=== PATIENT | male | born 1950 | race Caucasian/White ===

== ENCOUNTER 2018-12-15 15:45 | Emergency (ER) | payer MEDICARE, OTHER ==
[2018-12-15] MEDS ORDERED: DIPH,PERTUS(ACELL)TETVAC-LF 0.5 ML VIAL IM ONE (16:10)
[2018-12-15] MEDS ORDERED: DOXYCYCLINE 100 MG CAP PO STA (16:11)
[2018-12-15] MEDS: LIDOCAINE 1% INJ 10MG/ML (20 ML MDV) SQ ONE ×2 (16:24→16:25)
--- NOTE | 2018-12-15 16:31 | XR ---
EXAMINATION TYPE: XR hand complete LT DATE OF EXAM: 12/15/2018 CLINICAL HISTORY: pain TECHNIQUE: Frontal, lateral and oblique images of the left hand are obtained. COMPARISON: None. FINDINGS: There is no acute fracture/dislocation evident. The joint spaces appear within normal limi ts. The overlying soft tissue appears unremarkable. IMPRESSION: There is no acute fracture or dislocation. ICD 10 NO FRACTURE, INITIAL EVALUATION
--- NOTE | 2018-12-15 17:47 | ED ---
General Adult HPI - General Chief complaint: Animal Bite Stated complaint: [facility] - dog bite Time Seen by Provider: 12/15/18 16:03 Source: patient, RN notes reviewed Mode of arrival: ambulatory Limitations: no limitations - History of Present Illness Initial comments: Ludy is a 68-year-old male who presents to the emergency department for a chief complaint of dog bite on the left hand. This happened just prior to arrival. 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 States he did not inquire about rabies immunizations but will be able to contact the quality improvement manager. States he is not sure when his last tetanus shot was. Denies any difficulty moving his fingers. Denies any blood thinners. Denies any other injuries or complaints.Patient has no other complaints at this time including shortness of breath, chest pain, abdominal pain, nausea or vomiting, headache, or visual changes. - Related Data Home Medications Medication Instructions Recorded Confirmed Cholecalciferol [Vitamin D3] 2,000 unit PO DAILY 03/22/15 12/11/15 Fexofenadine HCl [Myra Allergy] 180 mg PO DAILY 03/22/15 12/11/15 Lisinopril-Hctz 10-12.5 mg 1 each PO DAILY 03/22/15 12/11/15 [Zestoretic 10-12.5] [place]-3 Fatty Acids/Fish Oil [Fish 1 each PO DAILY 03/22/15 12/11/15 Oil 1,000 mg Softgel] Aspirin EC [Ecotrin] 81 mg PO DAILY 12/10/15 12/11/15 Previous Rx's Medication Instructions Recorded Doxycycline [Vibramycin] 100 mg PO BID 14 Days capsule 12/15/18 Allergies Allergy/AdvReac Type Severity Reaction Status Date / Time amoxicillin trihydrate Allergy Rash/Hives Verified 12/15/18 16:02 [From Augmentin] potassium clavulanate Allergy Rash/Hives Verified 12/15/18 16:02 [From Augmentin] Sulfa (Sulfonamide Allergy Rash/Hives Verified 12/15/18 16:02 Antibiotics) Review of Systems ROS Statement: Those systems with pertinent positive or pertinent negative responses have been documented in the HPI. ROS Other: All systems not noted in ROS Statement are negative. Past Medical History Past Medical History: Hearing Disorder / Deafness, Hypertension Additional Past Medical History / Comment(s): seasonal allergies, SLIGHT [place] RT EAR History of Any Multi-Drug Resistant Organisms: None Reported Past Surgical History: Hernia Repair Additional Past Surgical History / Comment(s): LAPAROSCOPIC UMBILICAL HERNIA REPAIR 03/28/15, [facility]. INJ HERNIA REPAIR Past Anesthesia/Blood Transfusion Reactions: No Reported Reaction Past Psychological History: No Psychological Hx Reported Smoking Status: Former smoker Past Alcohol Use History: None Reported Past Drug Use History: None Reported - Past Family History Father Family Medical History: Asthma Additional Family Medical History / Comment(s): EMPHYSEMA Mother Family Medical History: Cancer, Hypertension Additional Family Medical History / Comment(s): BREAST CA General Exam Limitations: no limitations General appearance: alert, in no apparent distress Head exam: Present: atraumatic, normocephalic, normal inspection Eye exam: Present: normal appearance, PERRL, EOMI. Absent: scleral icterus, conjunctival injection ENT exam: Present: normal exam, mucous membranes moist Neck exam: Present: normal inspection, full ROM. Absent: tenderness, meningismus, lymphadenopathy Respiratory exam: Present: normal lung sounds bilaterally. Absent: respiratory distress, wheezes, rales, rhonchi, stridor Cardiovascular Exam: Present: regular rate, normal rhythm, normal heart sounds. Absent: systolic murmur, diastolic murmur, rubs, gallop, clicks Extremities exam: Present: full ROM ([place] motion of the left hand and all digits of the left hand including the fourth and fifth digits. Flexion and extension intact at the DIP, PIP, and MCP joints of the fourth and fifth digits.), normal capillary refill (Capillary refill less than 2 seconds, radial pulse 2+ in the left upper extremity. Capillary refill is 2 seconds in the left fourth and fifth digits.), other (Patient has a 3.5 cm laceration over the dorsal aspect of the left hand fourth and fifth metacarpals. No evidence for foreign body after inspection). Absent: tenderness, pedal edema, joint swelling, calf tenderness Course Vital Signs 12/15/18 16:00 Temperature 97.8 F Pulse Rate 85 Respiratory 16 Rate Blood Pressure 180/95 O2 Sat by Pulse 96 Oximetry Procedures - Laceration Laceration #1 Consent Obtained: verbal consent Indication: laceration Site: hand Size (cm): 3 Description: linear Depth: simple, single layer Anesthetic Used: lidocaine 1% Anesthesia Technique: local infiltration Amount (mls): 5 Pre-repair: wound explored, irrigated extensively (With 2 L of normal saline followed by saline pressure irrigation and then iodine) Type of Sutures: other ([place]) Size of Sutures: 5-0 Number of Sutures: 4 Technique: simple, interrupted Patient Tolerated Procedure: well, no complications Additional Comments: Wound was gaping so it was Loosely sutured to allow for drainage and prevent infection Medical Decision Making - Medical Decision Making Ludy is a 68-year-old male presenting for dog bite to the left hand. Patient states that he was bitten by a dog while at working at [employer]. Patient states he would rather follow up on whether the dog is immunized for rabies rather than receive rabies immunizations. These were offered to him. Patient was updated on tetanus. Ring was removed after x-ray was taken. On exam patient has a 3.5 cm laceration noted over the dorsal aspect of the left hand along the fourth and fifth metacarpals. Full range of motion of all digits including the fourth and fifth digit. No evidence for tendon injury. X-ray showed no acute fracture or dislocation. There is a possible foreign body noted. However after copious irrigation and inspection no foreign body evident. Wound was gaping, it was loosely sutured using 4 simple interrupted sutures allowing for drainage. Patient was started on doxycycline as she is ALLERGIC to Augmentin. Discussed this case with Dr. Michelle, and agreement with care plan. Patient will follow up with primary care. He will return here if he has any worsening symptoms. These were discussed in detail and included fever, drainage, redness, streaking redness, pain with movement of the finger which could signify infection to tendon. Disposition Clinical Impression: Dog bite, Laceration Disposition: HOME SELF-CARE Condition: Good Instructions (If sedation given, give patient instructions): Animal Bite (ED) Additional Instructions: Please take antibiotic as directed. Monitor for signs of infection is spreading or streaking redness, drainage, and with moving your fingers or fever. If these occur be sure to return to the emergency department. Otherwise follow-up with primary care in 1-2 days for a recheck. Return if you're having any other worsening symptoms. Prescriptions: Doxycycline [Vibramycin] 100 mg PO BID 14 Days capsule Is patient prescribed a controlled substance at d/c from ED?: No Referrals: [facility],Clinic [Primary Care Provider] - 1-2 days Time of Disposition: 17:38
[2018-12-15 18:01] VITALS: BP 150/89; PULSE 81; RESP 18; TEMP 98
== END 2018-12-15 18:01 | disposition home or self-care (01) ==
LOC: EC 15:45
DX: S61.452A Open bite of left hand, initial encounter (principal); I10 Essential (primary) hypertension; Z87.891 Personal history of nicotine dependence; Z79.82 Long term (current) use of aspirin; Z79.899 Other long term (current) drug therapy; Z88.0 Allergy status to penicillin; Z88.2 Allergy status to sulfonamides; Z23 Encounter for immunization; W54.0XXA Bitten by dog, initial encounter; Y92.69 Other specified industrial and construction area as the place of occurrence of the external cause; Y93.89 Activity, other specified; Y99.0 Civilian activity done for income or pay
CPT/HCPCS: 73130; 90715; 99283; 12002; 90471; J2001

== ENCOUNTER 2023-03-05 10:47 | Emergency (ER) | payer MEDICARE ==
[2023-03-05] MEDS ORDERED: ONDANSETRON 4 MG/2 ML VIAL IVP STA (12:05)
[2023-03-05] MEDS ORDERED: SODIUM CHLORIDE 0.9% 1,000 ML IV STA (12:05)
[2023-03-05 12:45] LABS: Basophils % (A) 0 %; Eosinophils # (A) 0.1 k/uL (0-0.7); Eosinophils % (A) 1 %; HCT 44.8 % (39.0-53.0); HGB 15.2 gm/dL (13.0-17.5); Lymphocytes # (A) 0.8 k/uL (1.0-4.8); Lymphocytes % (A) 10 %; MCH 31.3 pg (25.0-35.0); MCV 92.1 fL (80.0-100.0); Mean Platelet Volume 7.2; Monocytes # (A) 0.2 k/uL (0-1.0); Monocytes % (A) 3 %; Neutrophils # (A) 6.1 k/uL (1.3-7.7); Neutrophils % (A) 84 %; Platelet Count 211 k/uL (150-450); RBC 4.86 m/uL (4.30-5.90); RDW 12.1 % (11.5-15.5); WBC 7.3 k/uL (3.8-10.6)
[2023-03-05 12:56] LABS: ALT 29 U/L (4-49); AST 40 U/L (17-59); African American GFR (CKD) 86 (>60 ml/min/1.73 sqM); Albumin 4.4 g/dL (3.5-5.0); Alkaline Phosphatase 80 U/L (38-126); Anion Gap 11 mmol/L; Blood Urea Nitrogen 19 mg/dL (9-20); Calcium 9.5 mg/dL (8.4-10.2); Carbon Dioxide 19 mmol/L (22-30); Chloride 103 mmol/L (98-107); Glucose 125 mg/dL (74-99); Lipase 119 U/L (23-300); Magnesium 1.7 mg/dL (1.6-2.3); Non-African American GFR(CKD) 74 (>60 ml/min/1.73 sqM); Sodium 133 mmol/L (137-145); Total Bilirubin 1.2 mg/dL (0.2-1.3); Total Protein 7.1 g/dL (6.3-8.2)
[2023-03-05 13:14] LABS: Potassium 4.5 mmol/L (3.5-5.1)
[2023-03-05 14:19] LABS: Appearance,Urine Clear (Clear); Bilirubin,Urine Negative (Negative); Blood,Urine Large (Negative); Color,Urine Yellow; Glucose,Urine (UA) Negative (Negative); Ketones,Urine 1+ (Negative); Leukocyte Esterase,Urine Negative (Negative); Mucus,Urine Rare /hpf; Nitrite,Urine Negative (Negative); PH, Urine 5.5 (5.0-8.0); Protein,Urine Negative (Negative); RBC,Urine 47 /hpf (0-5); Specific Gravity,Urine 1.021 (1.001-1.035); Squamous Epithelial Cell,Urine <1 /hpf (0-4); Urobilinogen,Urine <2.0 mg/dL (<2.0); WBC,Urine <1 /hpf (0-5)
--- NOTE | 2023-03-05 14:23 | CT ---
EXAMINATION TYPE: CT abdomen pelvis wo con DATE OF EXAM: 03/05/2023 COMPARISON: None HISTORY: RT side abdomen pain CT DLP: 629.7 mGycm Automated exposure control for dose reduction was used. TECHNIQUE: Helical acquisition of images was performed from the lung bases through the pelvis. FINDINGS: LUNG BASES: There is subsegmental consolidation involving both lungs. Elevated left hemidiaphragm. Va edgardo 5 mm nodule in the right middle lobe. Favor scarring or atelectasis at the lung bases. Coronary a rtery calcification noted. LIVER/GB: Cholelithiasis with no CT evidence of cholecystitis. PANCREAS: No significant abnormality is seen. SPLEEN: No significant abnormality is seen. ADRENALS: No significant abnormality is seen. KIDNEYS: There is mild right hydronephrosis secondary to a 2 mm right UVJ calcification. A right-side d perinephric edema noted. There is a hypodense lesion within the mid upper pole right kidney measuring 4 Hounsfield units and 2 cm compatible with simple Bosniak classification 1 renal cyst. Mild left-sided perinephric stranding with no hydronephrosis or nephrolithiasis. URINARY BLADDER: No significant abnormality is seen. ADENOPATHY: None visualized. OSSEOUS STRUCTURES: Multilevel degenerative disc disease with vacuum disc L5-S1. Multilevel facet ar thropathy. Bilateral hip arthropathy. BOWEL: Nonspecific abdomen. No evidence of obstruction. A small to moderate hiatal hernia. OTHER: Aorta normal caliber IMPRESSION: 1. MILD RIGHT HYDRONEPHROSIS WITH PERINEPHRIC EDEMA SECONDARY TO 2 MM RIGHT UVJ CALCULUS. 2. CHOLELITHIASIS WITH NO CT EVIDENCE OF CHOLECYSTITIS.
[2023-03-05] MEDS ORDERED: ACET/COD 300 MG/30 MG STARTER PACK 6 TAB BTL PO STA (14:24)
--- NOTE | 2023-03-05 14:27 | ED ---
General Adult HPI - General Chief complaint: Nausea/Vomiting/Diarrhea Stated complaint: abd pain Time Seen by Provider: 03/05/23 12:05 Source: patient, family, RN notes reviewed Mode of arrival: wheelchair Limitations: no limitations - History of Present Illness Initial comments: 72-year-old male presents emergency Department chief complaint right flank pain. Sudden onset. Patient did have dry heaving. States nothing makes it felt better or worse. No history kidney stones. Patient states she's had no prior abdominal surgeries denies fevers chills no change in bowel habits. - Related Data Home Medications Medication Instructions Recorded Confirmed Ascorbic Acid [Vitamin C] 1,000 mg PO DAILY 03/05/23 03/05/23 Cholecalciferol [Vitamin D3 (25 25 mcg PO DAILY 03/05/23 03/05/23 Mcg = 1000 Iu)] Losartan/Hydrochlorothiazide 1 tab PO DAILY 03/05/23 03/05/23 [Losartan-Hctz 50-12.5 mg Tab] Sildenafil Citrate 100 mg PO Q72H PRN 03/05/23 03/05/23 Vitamin A 2,400 mcg PO DAILY 03/05/23 03/05/23 Previous Rx's Medication Instructions Recorded Ketorolac [Toradol] 10 mg PO Q8HR #15 tab 03/05/23 Ondansetron Odt [Zofran Odt] 4 mg PO Q8HR PRN #10 tab 03/05/23 Allergies Allergy/AdvReac Type Severity Reaction Status Date / Time amoxicillin trihydrate Allergy Rash/Hives Verified 03/05/23 13:38 [From Augmentin] potassium clavulanate Allergy Rash/Hives Verified 03/05/23 13:38 [From Augmentin] Sulfa (Sulfonamide Allergy Rash/Hives Verified 03/05/23 13:38 Antibiotics) Review of Systems ROS Statement: Those systems with pertinent positive or pertinent negative responses have been documented in the HPI. ROS Other: All systems not noted in ROS Statement are negative. Past Medical History Past Medical History: Hearing Disorder / Deafness, Hypertension Additional Past Medical History / Comment(s): seasonal allergies, SLIGHT [place] RT EAR History of Any Multi-Drug Resistant Organisms: None Reported Past Surgical History: Hernia Repair Additional Past Surgical History / Comment(s): LAPAROSCOPIC UMBILICAL HERNIA REPAIR 03/28/15, [facility]. INJ HERNIA REPAIR X3 Past Anesthesia/Blood Transfusion Reactions: No Reported Reaction Past Psychological History: No Psychological Hx Reported Smoking Status: Never smoker Past Alcohol Use History: None Reported Past Drug Use History: None Reported - Past Family History Father Family Medical History: Asthma Additional Family Medical History / Comment(s): EMPHYSEMA Mother Family Medical History: Cancer, Hypertension Additional Family Medical History / Comment(s): BREAST CA General Exam Limitations: no limitations General appearance: alert, in no apparent distress Head exam: Present: atraumatic, normocephalic, normal inspection Respiratory exam: Present: normal lung sounds bilaterally. Absent: respiratory distress, wheezes, rales, rhonchi, stridor Cardiovascular Exam: Present: regular rate, normal rhythm, normal heart sounds. Absent: systolic murmur, diastolic murmur, rubs, gallop, clicks GI/Abdominal exam: Present: soft, normal bowel sounds. Absent: distended, tenderness, guarding, rebound, rigid Back exam: Absent: CVA tenderness (R), CVA tenderness (L) Course Vital Signs 03/05/23 03/05/23 03/05/23 11:36 12:29 14:44 Temperature 97.0 F L 97.2 F L Pulse Rate 86 63 70 Respiratory 22 18 20 Rate Blood Pressure 188/95 168/103 156/85 O2 Sat by Pulse 99 97 98 Oximetry Medical Decision Making - Medical Decision Making Was pt. sent in by a medical professional or institution (Dr. PA, SPIRAL WINDER, urgent care, hospital, or care home...) When possible be specific @ -No Did you speak to anyone other than the patient for history (EMS, parent, family, police, friend...)? What history was obtained from this source @ -No Did you review nursing and triage notes (agree or disagree)? Why? @ -I reviewed and agree with nursing and triage notes Were old charts reviewed (outside hosp., previous admission, EMS record, old EKG, old radiological studies, urgent care reports/EKG's, care home records)? Report findings @ -No old charts were reviewed Differential Diagnosis (chest pain, altered mental status, abdominal pain women, abdominal pain men, vaginal bleeding, weakness, fever, dyspnea, syncope, headache, dizziness, GI bleed, back pain, seizure, CVA, palpatations, mental health, musculoskeletal)? @ -nDifferential Abdominal Pain Men: Appendicitis, cholecystitis, diverticulosis, ischemic bowel, pancreatitis, hepatitis, UTI, gastroenteritis, AAA, incarcerated hernia, bowel obstruction, constipation, inflammatory bowel, hepatitis, peptic ulcer disease, splenic infarction, perforated viscus, testicular torsion, this is not meant to be an all-inclusive listble EKG interpreted by me (3pts min.). @ -None X-rays interpreted by me (1pt min.). @ -None done CT interpreted by me (1pt min.). @ -[CT abdomen and pelvis shows evidence of 2 mm stone in the right ureter patient does have gallstones with no evidence of cholecystitis U/S interpreted by me (1pt. min.). @ -None done What testing was considered but not performed or refused? (CT, X-rays, U/S, labs)? Why? @ -None What meds were considered but not given or refused? Why? @ -None Did you discuss the management of the patient with other professionals (professionals i.e. , PA, SPIRAL WINDER, lab, RT, psych nurse, social security specialist, sewing trimmer, teacher, staff submarine warfare officer, classification case manager)? Give summary @ -No Was smoking cessation discussed for >3mins.? @ -No Was critical care preformed (if so, how long)? @ -No Were there social determinants of health that impacted care today? How? (Homeles sness, low income, unemployed, alcoholism, drug addiction, transportation, low edu. Level, literacy, decrease access to med. care, usp, rehab)? @ -No Was there de-escalation of care discussed even if they declined (Discuss DNR or withdrawal of care, Hospice)? DNR status @ -No What co-morbidities impacted this encounter? (DM, HTN, Smoking, COPD, CAD, Cancer, CVA, ARF, Chemo, Hep., AIDS, mental health diagnosis, sleep apnea, morbid obesity)? @ -None Was patient admitted / discharged? Hospital course, mention meds given and route, prescriptions, significant lab abnormalities, going to OR and other pertinent info. @ -Discharge patient feels greatly improved patient has evidence of 2 mm ureteral calculi. Patient was discharged in stable condition close follow patient was updated on CT findings of gallstones. Undiagnosed new problem with uncertain prognosis? @ -No Drug Therapy requiring intensive monitoring for toxicity (Heparin, Nitro, Insulin, Cardizem)? @ -No Were any procedures done? @ -No Diagnosis/symptom? @ -Kidney stone Acute, or Chronic, or Acute on Chronic? @ -Acute Uncomplicated (without systemic symptoms) or Complicated (systemic symptoms)? @ -Uncomplicated Side effects of treatment? @ -No Exacerbation, Progression, or Severe Exacerbation? @ -No Poses a threat to life or bodily function? How? (Chest pain, USA, VT, pneumonia, PE, COPD, DKA, ARF, appy, cholecystitis, CVA, Diverticulitis, Homicidal, Suicidal, threat to staff... and all critical care pts) @ -No - Lab Data Result diagrams: 03/05/23 12:24 03/05/23 12:24 Lab Results 03/05/23 03/05/23 03/05/23 Range/Units 12:24 12:24 12:24 WBC 7.3 (3.8-10.6) k/uL RBC 4.86 (4.30-5.90) m/uL Hgb 15.2 (13.0-17.5) gm/dL Hct 44.8 (39.0-53.0) % MCV 92.1 (80.0-100.0) fL MCH 31.3 (25.0-35.0) pg MCHC 34.0 (31.0-37.0) g/dL RDW 12.1 (11.5-15.5) % Plt Count 211 (150-450) k/uL MPV 7.2 Neutrophils % 84 % Lymphocytes % 10 % Monocytes % 3 % Eosinophils % 1 % Basophils % 0 % Neutrophils # 6.1 (1.3-7.7) k/uL Lymphocytes # 0.8 L (1.0-4.8) k/uL Monocytes # 0.2 (0-1.0) k/uL Eosinophils # 0.1 (0-0.7) k/uL Basophils # 0.0 (0-0.2) k/uL Sodium 133 L (137-145) mmol/L Potassium 4.5 (3.5-5.1) mmol/L Chloride 103 (98-107) mmol/L Carbon Dioxide 19 L (22-30) mmol/L Anion Gap 11 mmol/L BUN 19 (9-20) mg/dL Creatinine 1.00 (0.66-1.25) mg/dL Est GFR (CKD-EPI)AfAm 86 (>60 ml/min/1.73 sqM) Est GFR (CKD-EPI)NonAf 74 (>60 ml/min/1.73 sqM) Glucose 125 H (74-99) mg/dL Calcium 9.5 (8.4-10.2) mg/dL Magnesium 1.7 (1.6-2.3) mg/dL Total Bilirubin 1.2 (0.2-1.3) mg/dL AST 40 (17-59) U/L ALT 29 (4-49) U/L Alkaline Phosphatase 80 (38-126) U/L Total Protein 7.1 (6.3-8.2) g/dL Albumin 4.4 (3.5-5.0) g/dL Lipase 119 (23-300) U/L Urine Color Yellow Urine Appearance Clear (Clear) Urine pH 5.5 (5.0-8.0) Ur Specific [place] 1.021 (1.001-1.035) Urine Protein Negative (Negative) Urine Glucose (UA) Negative (Negative) Urine Ketones 1+ H (Negative) Urine Blood Large H (Negative) Urine Nitrite Negative (Negative) Urine Bilirubin Negative (Negative) Urine Urobilinogen <2.0 (<2.0) mg/dL Ur Leukocyte Esterase Negative (Negative) Urine RBC 47 H (0-5) /hpf Urine WBC <1 (0-5) /hpf Ur Squamous Epith Cells <1 (0-4) /hpf Urine Mucus Rare H (None) /hpf Disposition Clinical Impression: Right ureteral calculus Disposition: HOME SELF-CARE Condition: Stable Instructions (If sedation given, give patient instructions): Kidney Stones (ED) Additional Instructions: Please return to the Emergency Department if symptoms worsen or any other concerns. Prescriptions: Ketorolac [Toradol] 10 mg PO Q8HR #15 tab Ondansetron Odt [Zofran Odt] 4 mg PO Q8HR PRN #10 tab PRN Reason: Nausea Is patient prescribed a controlled substance at d/c from ED?: No Referrals: Lauri Kingston DO [Primary Care Provider] - 1-2 days Time of Disposition: 14:26
[2023-03-05 14:50] VITALS: BP 156/85; PULSE 70; RESP 20; TEMP 97.2
== END 2023-03-05 14:45 | disposition home or self-care (01) ==
LOC: EC 10:47
DX: N13.2 Hydronephrosis with renal and ureteral calculous obstruction (principal); I10 Essential (primary) hypertension; Z88.2 Allergy status to sulfonamides; Z88.0 Allergy status to penicillin; Z88.8 Allergy status to other drugs, medicaments and biological substances; Z79.899 Other long term (current) drug therapy
CPT/HCPCS: 36415; 80053; 83690; 83735; 85025; 81001; 74176; 99284; 96374; 96361; J2405